=== PATIENT | male | born 1975 | race Caucasian/White ===

== ENCOUNTER 2019-09-27 16:41 | Emergency (ER) | payer OTHER, SELFPAY ==
--- NOTE | 2019-09-27 17:42 | RAD ---
RADIOGRAPH CHEST 1 VIEW: DATE: 09/27/2019 HISTORY: 44-year-old male with fever FINDINGS: There are no airspace densities, pulmonary edema, pneumothorax, or cardiomegaly. The lateral costophr enic angles are sharp. IMPRESSION: No acute cardiopulmonary findings.
[2019-09-27 17:45] LABS: Hemoglobin 14.8 g/dL (14.0-18.0); Mean Corpuscular HGB CONC 33.9 g/dL (32.0-36.0); Mean Corpuscular Hemoglobin 28.2 pg (27.0-31.0); Mean Corpuscular Volume 82.9 fL (78.0-98.0); Mean Platelet Volume 9.1 fL (7.4-10.4); Platelet Count 210 thou/uL (130-400); Red Blood Cell (RBC) Count 5.25 mill/uL (4.70-6.10); White Blood Cell (WBC) Count 13.3 thou/uL (4.8-10.8)
[2019-09-27 18:00] LABS: ALT (SGPT) 25 U/L (8-55); AST (SGOT) 17 U/L (5-34); Albumin 4.4 g/dL (3.5-5.0); Alkaline Phosphatase 53 U/L (40-110); Anion Gap 16 mmol/L (10-20); BUN (Urea Nitrogen) 12 mg/dL (8.9-20.6); Bilirubin, Total 0.9 mg/dL (0.2-1.2); Calc. Creatinine Clearance 0 mL/min (70-130); Carbon Dioxide 21 mmol/L (22-29); Chloride 101 mmol/L (98-107); Estimated GFR-MDRD Greater than 90; Globulin 2.9 g/dL (2.4-3.5); Glucose 104 mg/dL (70-105); Potassium 3.8 mmol/L (3.5-5.1); Protein, Total 7.3 g/dL (6.0-8.3); Sodium 134 mmol/L (136-145)
[2019-09-27 18:02] LABS: Band 11 % (5-11); Lymphocytes 4 % (21-51); MDiff Complete? YES; Monocytes 4 % (0-10); Neutrophil 78 % (42-75); Platelet Morphology Comment Appears Adequate; Polychromasia SLIGHT = 2-3 cells (100X) (0-2/hpf); Reactive Lymphocytes 3 % (0-10)
== END 2019-09-27 19:31 ==
LOC: ERS 16:41
DX: J02.9 Acute pharyngitis, unspecified (principal); I10 Essential (primary) hypertension; Z79.899 Other long term (current) drug therapy
CPT/HCPCS: 36415; 71045; 80053; 85025; 87804; 93005

== ENCOUNTER 2021-01-08 21:24 | Inpatient (IN) | payer SELFPAY ==
[2021-01-08 22:01] LABS: Actual Bicarbonate (HCO3a) 16.5 mEq/L (22-28); Analyzer IN Cardio ER; Base Excess (BEa) -6.2 mEq/L (-2.0 to +3.0); CO2 Tension 26.4 mmHg (35.0-45.0); Calcium, Ionized (arterial) 0.97 mmol/L (1.12-1.30); Carboxyhemoglobin (COHb) 0.6 gm% (0.0-3.0); Hemoglobin (Hb) 15.3 g/dL (14.0-18.0); O2 Tension (PaO2), arterial 75.5 mmHg (80.0-100.0); Potassium - ABG Lab 3.79 mmol/L (3.70-5.30); pH, Arterial 7.41 (7.35-7.45)
[2021-01-08] MEDS ORDERED: cefTRIAXone\\ROCEPHIN 2 GM VIAL ONE (22:03)
[2021-01-08 22:04] LABS: Puncture Site RRA
[2021-01-08] MEDS ORDERED: VANCOMYCIN IVPB SCH (22:15)
[2021-01-08] MEDS ORDERED: AMINO ACID 10% IVPB SCH (22:15)
[2021-01-08 22:31] LABS: PTT 25.6 sec (22.9-36.1); Prothrombin Time 13.4 sec (12.0-14.7)
[2021-01-08] MEDS ORDERED: Lorazepam 2 MG/ML VIAL ONE (22:36)
[2021-01-08 22:43] LABS: #Lymphocytes 1.3 thou/uL (1.20-3.40); #Monocytes 0.6 thou/uL (0.11-0.59); #Neutrophils 14.2 thou/uL (1.40-6.50); %Basophils 0.1 % (0.0-1.0); %Eosinophils 0.1 % (0.0-10.0); %Monocytes 3.4 % (0.0-10.0); %Neutrophils 88.3 % (42.0-75.0); Hemoglobin 15.1 g/dL (14.0-18.0); Mean Corpuscular HGB CONC 34.8 g/dL (32.0-36.0); Mean Corpuscular Volume 80.4 fL (78.0-98.0); Mean Platelet Volume 8.7 fL (7.4-10.4); Platelet Count 51 thou/uL (130-400); RBC Distribution Width 12.5 % (11.5-14.5); White Blood Cell (WBC) Count 16.1 thou/uL (4.8-10.8)
[2021-01-08 22:44] LABS: Platelet Morphology Comment Appears Decreased
[2021-01-08] MEDS ORDERED: Acetaminophen 325 MG TAB PO PRN (23:04)
[2021-01-08] MEDS ORDERED: HYDROcodone/Acetaminophen 5/325 mg Tablet PO PRN (23:04)
[2021-01-08] MEDS ORDERED: Lorazepam 2 MG/ML VIAL SLOW IVP PRN (23:32)
[2021-01-08 23:59] LABS: ALT (SGPT) 104 U/L (8-55); AST (SGOT) 294 U/L (5-34); Albumin 3.7 g/dL (3.5-5.0); Alkaline Phosphatase 71 U/L (40-110); Anion Gap 21 mmol/L (10-20); BUN (Urea Nitrogen) 5 mg/dL (8.9-20.6); Bilirubin, Total 0.9 mg/dL (0.2-1.2); Calc. Creatinine Clearance 0 mL/min (70-130); Calcium 7.6 mg/dL (7.8-10.44); Carbon Dioxide 15 mmol/L (22-29); Chloride 84 mmol/L (98-107); Globulin 2.6 g/dL (2.4-3.5); Potassium 3.9 mmol/L (3.5-5.1); Protein, Total 6.3 g/dL (6.0-8.3)
[2021-01-09 00:01] LABS: Anion Gap 19 mmol/L (10-20); BUN (Urea Nitrogen) 5 mg/dL (8.9-20.6); Calc. Creatinine Clearance 0 mL/min (70-130); Calcium 7.2 mg/dL (7.8-10.44); Carbon Dioxide 17 mmol/L (22-29); Chloride 85 mmol/L (98-107); Potassium 3.7 mmol/L (3.5-5.1)
[2021-01-09 00:02] LABS: Glucose 105 mg/dL (70-105); Sodium 116 mmol/L (136-145)
[2021-01-09] MEDS ORDERED: Calcium Gluconate 4.6 MEQ in Sodium Chloride 0.9% 100 ML IVPB SCH (00:08)
[2021-01-09 00:09] LABS: Glucose 104 mg/dL (70-105); Sodium 117 mmol/L (136-145)
[2021-01-09] MEDS ORDERED: Dextrose 5 % And 0.9 % NaCl 1,000 ML IV SCH (00:15)
[2021-01-09 00:43] VITALS: BMI 34.5
[2021-01-09 00:45] LABS: SARS-CoV-2 NAA Rapid Test Not Detected (NotDetected)
[2021-01-09] MEDS: Ondansetron PF 4 MG/2 ML Vial IVP PRN ×2 (00:51→06:38)
[2021-01-09 02:44] LABS: Lactic Acid 3.9 mmol/L (0.5-2.2)
[2021-01-09 02:58] LABS: Anion Gap 20 mmol/L (10-20); BUN (Urea Nitrogen) 5 mg/dL (8.9-20.6); Calc. Creatinine Clearance 233 mL/min (70-130); Calcium 7.6 mg/dL (7.8-10.44); Carbon Dioxide 16 mmol/L (22-29); Chloride 86 mmol/L (98-107); Glucose 127 mg/dL (70-105); Potassium 3.6 mmol/L (3.5-5.1)
[2021-01-09 03:04] LABS: Sodium 118 mmol/L (136-145)
[2021-01-09 07:23] LABS: Anion Gap 21 mmol/L (10-20); BUN (Urea Nitrogen) 5 mg/dL (8.9-20.6); Calc. Creatinine Clearance 218 mL/min (70-130); Calcium 7.9 mg/dL (7.8-10.44); Carbon Dioxide 19 mmol/L (22-29); Chloride 86 mmol/L (98-107); Glucose 121 mg/dL (70-105); Potassium 3.7 mmol/L (3.5-5.1); Sodium 122 mmol/L (136-145)
[2021-01-09] MEDS ORDERED: Enoxaparin Sodium 40 MG/0.4 ML SYRINGE SC SCH (09:00)
[2021-01-09] MEDS ORDERED: Thiamine HCl 200 MG/2 ML VIAL SLOW IVP SCH (09:15)
[2021-01-09] MEDS: Famotidine 20 MG TAB PO SCH ×2 (11:15→21:13)
[2021-01-09 11:53] LABS: Anion Gap 20 mmol/L (10-20); BUN (Urea Nitrogen) 6 mg/dL (8.9-20.6); Calc. Creatinine Clearance 224 mL/min (70-130); Calcium 8.4 mg/dL (7.8-10.44); Carbon Dioxide 21 mmol/L (22-29); Chloride 87 mmol/L (98-107); Glucose 112 mg/dL (70-105); Potassium 3.7 mmol/L (3.5-5.1); Sodium 124 mmol/L (136-145)
[2021-01-09] MEDS ORDERED: Lorazepam 2 MG/ML VIAL SLOW IVP PRN (14:51)
[2021-01-09 16:52] LABS: Anion Gap 17 mmol/L (10-20); BUN (Urea Nitrogen) 6 mg/dL (8.9-20.6); Calc. Creatinine Clearance 227 mL/min (70-130); Carbon Dioxide 24 mmol/L (22-29); Chloride 88 mmol/L (98-107); Glucose 94 mg/dL (70-105); Potassium 3.5 mmol/L (3.5-5.1); Sodium 125 mmol/L (136-145)
[2021-01-09 21:32] LABS: Anion Gap 16 mmol/L (10-20); BUN (Urea Nitrogen) 6 mg/dL (8.9-20.6); Calc. Creatinine Clearance 221 mL/min (70-130); Calcium 8.3 mg/dL (7.8-10.44); Carbon Dioxide 25 mmol/L (22-29); Chloride 89 mmol/L (98-107); Glucose 89 mg/dL (70-105); Potassium 3.5 mmol/L (3.5-5.1); Sodium 126 mmol/L (136-145)
[2021-01-09] MEDS ORDERED: Diazepam 5 MG TAB PO PRN (22:02)
[2021-01-09] MEDS ORDERED: Diazepam 5 MG TAB PO SCH (22:15)
[2021-01-09] MEDS ORDERED: Dextrose 5% in Water 1,000 ML IV SCH (22:30)
[2021-01-10 04:21] LABS: #Eosinphils 0.1 thou/uL (0.0-0.7); #Lymphocytes 1.2 thou/uL (1.20-3.40); #Monocytes 0.4 thou/uL (0.11-0.59); #Neutrophils 7.3 thou/uL (1.40-6.50); %Basophils 0.2 % (0.0-1.0); %Eosinophils 0.7 % (0.0-10.0); %Lymphocytes 13.8 % (21.0-51.0); %Monocytes 4.7 % (0.0-10.0); %Neutrophils 80.7 % (42.0-75.0); Hemoglobin 14.6 g/dL (14.0-18.0); Mean Corpuscular HGB CONC 33.6 g/dL (32.0-36.0); Mean Corpuscular Hemoglobin 27.6 pg (27.0-31.0); Mean Corpuscular Volume 82.1 fL (78.0-98.0); Mean Platelet Volume 8.5 fL (7.4-10.4); Platelet Count 189 thou/uL (130-400); RBC Distribution Width 12.5 % (11.5-14.5); Red Blood Cell (RBC) Count 5.28 mill/uL (4.70-6.10)
[2021-01-10 04:39] LABS: Anion Gap 14 mmol/L (10-20); BUN (Urea Nitrogen) 7 mg/dL (8.9-20.6); Calc. Creatinine Clearance 206 mL/min (70-130); Calcium 8.3 mg/dL (7.8-10.44); Carbon Dioxide 27 mmol/L (22-29); Chloride 90 mmol/L (98-107); Glucose 90 mg/dL (70-105); Potassium 3.2 mmol/L (3.5-5.1); Sodium 128 mmol/L (136-145)
[2021-01-10] MEDS: Dextrose 5% in Water 1,000 ML IV SCH ×2 (08:08→21:37)
[2021-01-10] MEDS: Diazepam 5 MG TAB PO PRN ×3 (08:44→21:36)
[2021-01-10] MEDS: Magnesium Oxide 400 MG TAB PO SCH (08:44)
[2021-01-10] MEDS: Famotidine 20 MG TAB PO SCH ×2 (08:44→21:36)
[2021-01-10] MEDS: Multivitamin W/ Minerals 1 TAB PO SCH (08:44)
[2021-01-10] MEDS: Thiamine 100 MG TAB PO SCH (08:44)
[2021-01-10] MEDS: Folic Acid 1 MG TAB PO SCH (08:44)
[2021-01-10 11:10] LABS: Anion Gap 12 mmol/L (10-20); BUN (Urea Nitrogen) 7 mg/dL (8.9-20.6); Calc. Creatinine Clearance 186 mL/min (70-130); Calcium 8.5 mg/dL (7.8-10.44); Carbon Dioxide 30 mmol/L (22-29); Chloride 88 mmol/L (98-107); Glucose 118 mg/dL (70-105); Magnesium 2.6 mg/dL (1.6-2.6); Potassium 3.1 mmol/L (3.5-5.1); Sodium 127 mmol/L (136-145)
[2021-01-10] MEDS: Potassium Chloride 20 MEQ TAB PO SCH ×2 (11:47→14:50)
[2021-01-10 17:06] LABS: Anion Gap 12 mmol/L (10-20); BUN (Urea Nitrogen) 8 mg/dL (8.9-20.6); Calc. Creatinine Clearance 190 mL/min (70-130); Calcium 8.6 mg/dL (7.8-10.44); Carbon Dioxide 29 mmol/L (22-29); Chloride 92 mmol/L (98-107); Glucose 96 mg/dL (70-105); Potassium 3.9 mmol/L (3.5-5.1); Sodium 129 mmol/L (136-145)
[2021-01-10] MEDS ORDERED: Enoxaparin Sodium 40 MG/0.4 ML SYRINGE SC SCH (21:00)
[2021-01-11 06:36] LABS: #Eosinphils 0.1 thou/uL (0.0-0.7); #Lymphocytes 1.6 thou/uL (1.20-3.40); #Monocytes 0.4 thou/uL (0.11-0.59); #Neutrophils 4.9 thou/uL (1.40-6.50); %Basophils 0.6 % (0.0-1.0); %Eosinophils 1.7 % (0.0-10.0); %Lymphocytes 22.3 % (21.0-51.0); %Monocytes 6.1 % (0.0-10.0); %Neutrophils 69.5 % (42.0-75.0); Hemoglobin 14.1 g/dL (14.0-18.0); Mean Corpuscular HGB CONC 33.2 g/dL (32.0-36.0); Mean Corpuscular Hemoglobin 27.4 pg (27.0-31.0); Mean Corpuscular Volume 82.5 fL (78.0-98.0); Mean Platelet Volume 8.4 fL (7.4-10.4); Platelet Count 186 thou/uL (130-400); RBC Distribution Width 12.6 % (11.5-14.5); Red Blood Cell (RBC) Count 5.15 mill/uL (4.70-6.10)
[2021-01-11 06:52] LABS: Anion Gap 9 mmol/L (10-20); BUN (Urea Nitrogen) 5 mg/dL (8.9-20.6); Calc. Creatinine Clearance 198 mL/min (70-130); Calcium 8.5 mg/dL (7.8-10.44); Carbon Dioxide 29 mmol/L (22-29); Chloride 96 mmol/L (98-107); Glucose 104 mg/dL (70-105); Potassium 3.3 mmol/L (3.5-5.1); Sodium 131 mmol/L (136-145)
[2021-01-11] MEDS: Famotidine 20 MG TAB PO SCH (09:20)
[2021-01-11] MEDS: Thiamine 100 MG TAB PO SCH (09:20)
[2021-01-11] MEDS: Magnesium Oxide 400 MG TAB PO SCH (09:20)
[2021-01-11] MEDS: Folic Acid 1 MG TAB PO SCH (09:20)
[2021-01-11] MEDS: Multivitamin W/ Minerals 1 TAB PO SCH (09:20)
[2021-01-11] MEDS ORDERED: Potassium Chloride 20 MEQ TAB PO SCH (09:30)
[2021-01-11] MEDS: Dextrose 5% in Water 1,000 ML IV SCH (11:56)
[2021-01-11 12:47] VITALS: BP 170/82; TEMP 98.3
[2021-01-11] MEDS: Diazepam 5 MG TAB PO PRN (13:10)
== END 2021-01-11 13:20 | disposition home or self-care (01) | DRG 641 ==
LOC: ERS 21:24 → IMCU/EMU 22:46 → ONC 01-10 18:14
PROVIDERS: ADMIT Internal Medicine; ATTEND Internal Medicine
DX: E87.1 Hypo-osmolality and hyponatremia (principal); F10.229 Alcohol dependence with intoxication, unspecified; Z20.822 Contact with and (suspected) exposure to COVID-19; Y90.8 Blood alcohol level of 240 mg/100 ml or more; I12.9 Hypertensive chronic kidney disease with stage 1 through stage 4 chronic kidney disease, or unspecified chronic kidney disease; N18.1 Chronic kidney disease, stage 1; F17.220 Nicotine dependence, chewing tobacco, uncomplicated; E87.2 Acidosis; E87.3 Alkalosis; D72.829 Elevated white blood cell count, unspecified; E87.6 Hypokalemia; E83.42 Hypomagnesemia; D69.59 Other secondary thrombocytopenia; Z98.890 Other specified postprocedural states; Z91.19 Patient's noncompliance with other medical treatment and regimen
CPT/HCPCS: 36415; 36416; 36600; 80048; 80307; 82140; 82693; 82805; 83605; 83735; 83930; 83935; 84443; 84484; 85025; 85610; 85730; 87040; 87149; 93005; 96365; 96367; 96375; J0696; J2001; J2060; J2405; J3370; J3411; J3475; J3490; U0002

== ENCOUNTER 2022-04-05 09:51 | Emergency (ER) | payer SELFPAY ==
[2022-04-05 10:26] LABS: #Lymphocytes 0.6 thou/uL (1.20-3.40); #Monocytes 0.4 thou/uL (0.11-0.59); #Neutrophils 8.5 thou/uL (1.40-6.50); %Basophils 0.2 % (0.0-1.0); %Eosinophils 0.2 % (0.0-10.0); %Lymphocytes 6.4 % (21.0-51.0); %Monocytes 4.5 % (0.0-10.0); %Neutrophils 88.8 % (42.0-75.0); Hemoglobin 16.6 g/dL (14.0-18.0); Mean Corpuscular HGB CONC 32.7 g/dL (32.0-36.0); Mean Corpuscular Hemoglobin 29.4 pg (27.0-31.0); Mean Corpuscular Volume 89.8 fL (78.0-98.0); Mean Platelet Volume 7.7 fL (7.4-10.4); Platelet Count 295 thou/uL (130-400); RBC Distribution Width 13.3 % (11.5-14.5); Red Blood Cell (RBC) Count 5.65 mill/uL (4.70-6.10); White Blood Cell (WBC) Count 9.6 thou/uL (4.8-10.8)
[2022-04-05 10:46] LABS: Anion Gap 19 mmol/L (10-20); BUN (Urea Nitrogen) 12 mg/dL (8.9-20.6); Calc. Creatinine Clearance 0 mL/min (70-130); Calcium 10.1 mg/dL (7.8-10.44); Carbon Dioxide 27 mmol/L (22-29); Chloride 92 mmol/L (98-107); Estimated GFR 91; Glucose 116 mg/dL (70-105); Potassium 4.3 mmol/L (3.5-5.1); Sodium 134 mmol/L (136-145)
[2022-04-05 10:47] LABS: ALT (SGPT) 150 U/L (8-55); AST (SGOT) 164 U/L (5-34); Albumin 4.6 g/dL (3.5-5.0); Alkaline Phosphatase 95 U/L (40-110); Bilirubin, Total 1.5 mg/dL (0.2-1.2); Globulin 3.8 g/dL (2.4-3.5); Protein, Total 8.4 g/dL (6.0-8.3)
[2022-04-05] MEDS ORDERED: Magnesium 2 GM/50 ML BAG (IN WATER) ONE (11:36)
[2022-04-05] MEDS ORDERED: Lorazepam (BATCHED) 2 MG/ML SYR SLOW IVP SCH (12:30)
[2022-04-05 13:09] LABS: SARS-CoV-2 NAA Rapid Test Not Detected (NotDetected)
[2022-04-05 14:15] LABS: Bacteria/HPF None Seen HPF (None Seen); Bilirubin 1+ (Negative); Blood, Urine 2+ (Negative); Clarity Clear (Clear); Glucose, Urine (Dipstick) Normal (Negative); Ketone, Urine 20 mg/dL (Negative); Leukocyte Negative Leu/uL (Negative); Nitrite Negative (Negative); Protein, Urine (Dipstick) 50 mg/dL (Neg-Trace); Specific Gravity, Urine 1.028 (1.002-1.036); Squamous Epithelial 0-3 HPF (0-3); WBC/HPF 0-3 HPF (0-3); pH, Urine 5.5 (5.0-9.0)
== END 2022-04-05 14:00 | disposition home or self-care (01) ==
LOC: ERS 09:51
DX: R53.1 Weakness (principal); R05.9 Cough, unspecified; Z20.822 Contact with and (suspected) exposure to COVID-19; I10 Essential (primary) hypertension; F17.220 Nicotine dependence, chewing tobacco, uncomplicated
CPT/HCPCS: 36415; 71045; 80053; 81003; 81015; 82550; 83690; 84484; 85025; 93005; 96361; 96365; 96367; 96375; J2060; J3411; J3475

== ENCOUNTER 2025-05-05 20:24 | Emergency (ER) | payer SELFPAY | END 2025-05-05 21:01 | LOC: ERS 20:24 | DX: Z02.89 Encounter for other administrative examinations (principal); F10.129 Alcohol abuse with intoxication, unspecified; I10 Essential (primary) hypertension; F17.220 Nicotine dependence, chewing tobacco, uncomplicated; Z79.899 Other long term (current) drug therapy | CPT/HCPCS: 99284 ==